=== PATIENT | female | born 1950 | race Caucasian/White ===

== ENCOUNTER 2021-03-17 02:13 | Emergency (ER) | payer MEDICARE, SELFPAY ==
[2021-03-17 02:18] VITALS: BP 105/62; PULSE 82; RESP 16; TEMP 36.4; O2SAT 98
[2021-03-17] MEDS: SILVER NITRATE (*SP) STICK 1 EACH TOPICAL (03:47)
[2021-03-17] MEDS: OXYMETAZOLINE HCL 0.05% NAS 15 ML BTL (*BKC) 1 SPRAY NASAL (03:47)
--- NOTE | 2021-03-17 04:21 | PC.NURSE ---
Pt has had no further bleeding. No new s/s.
[2021-03-17 04:27] VITALS: BP 111/64; PULSE 78; RESP 16; O2SAT 98
--- NOTE | 2021-03-17 04:27 | PC.NURSE ---
Pt has had no further bleeding since arriving to ED. Pt is electing to sign out and does not wish to wait for D/C by physician. Pt will return if needed. Pt did receive the Afrin nasal spray to Lt nare.
--- NOTE | 2021-03-17 09:05 | ED.EPISTAXIS ---
HPI - Epistaxis General Chief complaint: Epistaxis Stated complaint: nose bleed Time Seen by Provider: 03/17/21 03:17 Source: patient Mode of arrival: ambulatory Limitations: no limitations History of Present Illness HPI Narrative: This is a 70 year old female who presents for evaluation of epistaxis. She states tonight she was blowing her nose and she developed bleeding from her left nostril. She has been trying to stop the bleeding but pinching nose, apply ice and placing tissue in her nose. She states after 2 hours she was unable to get her nose to stop bleeding. She takes aspirin 81 mg and plavix for history of CVA. Her bleeding has stopped . She denies dizziness or lightheadedness. Related Data Home Medications Medication Instructions Recorded Confirmed acetaminophen 500 mg tablet 500 mg PO Q6H PRN 11/18/19 02/20/21 aspirin 81 mg tablet,delayed 81 mg PO DAILY 11/18/19 02/20/21 release cholecalciferol (vitamin D3) 50 50 mcg PO DAILY 02/20/21 02/20/21 mcg (2,000 unit) capsule magnesium 250 mg tablet 250 mg PO DAILY 02/20/21 02/20/21 Allergies Allergy/AdvReac Type Severity Reaction Status Date / Time codeine Allergy Severe nausea Verified 02/20/21 08:40 meperidine Allergy Severe Flushing Verified 02/20/21 08:40 Review of Systems Review of Systems: All systems reviewed & are unremarkable except as noted in HPI and below PMFSH Past Medical History Medical History (Updated 03/17/21 @ 09:12 by Celestina Ruffin MD) Accelerated hypertension Cerebrovascular accident (CVA) due to embolism of left middle cerebral artery Gastroesophageal reflux disease without esophagitis Mixed hyperlipidemia Surgical History Surgical History (Updated 03/17/21 @ 09:08 by Celestina Ruffin MD) History of appendectomy History of cholecystectomy Family History Family History Grandparent Family history of malignant neoplasm of breast Father Family history of coronary artery disease Mother Family history of malignant neoplasm of ovary Other Hypertension Social History Social History (Updated 02/20/21 @ 08:44 by Rach Lai MA) Smoking packs per day: 1 Smoking cigarettes per day: 20.0 Years smoked: 6 Smoking pack-years: 6.00 Smoking status: Former smoker Tobacco type: cigarettes Second hand tobacco smoke exposure: Yes Smoking end date: 10/07/77 Alcohol intake: current Exam Const: General: no acute distress and alert Orientation/consciousness: patient oriented x3 HENMT: Mouth: Yes lip normal Throat: uvula midline Other: right nostril normal, left nostril- no bleeding. There is small punctate area medial nostril may be source, Eyes: EOM: EOMs intact bilaterally Resp: Effort & Inspection: normal respiratory effort and no retractions Auscultation: clear to auscultation bilaterally Cardio: Rate: regular rate Rhythm: regular rhythm Heart sounds: no murmurs Skin: General skin exam: normal color Rashes: no rashes Neuro: General: patient oriented x3 and moves all extremities Psych: Mental Status: mental status grossly normal Course Reevaluation(s) Reevaluation #1: Nursing staff reports patient did not want to wait for reassessment or me to try to cauterize small area with silver nitrate. She stated her bleeding stopped. Date: 03/17/21 Time: 04:30 Vital Signs Vital signs: Vital Signs Temperature 97.6 F 03/17/21 02:18 Pulse Rate 82 03/17/21 02:18 Respiratory Rate 16 03/17/21 02:18 Blood Pressure 105/62 03/17/21 02:18 Pulse Oximetry 98 03/17/21 02:18 Temperature 97.6 F 03/17/21 02:18 Pulse Rate 78 03/17/21 04:27 Respiratory Rate 16 03/17/21 04:27 Blood Pressure 111/64 03/17/21 04:27 Pulse Oximetry 98 03/17/21 04:27 Discharge Plan Discharge Clinical Impression: Acute anterior epistaxis Patient Disposition: Elopement After Seen by Prov Condition: S
== END 2021-03-17 04:27 | disposition left against medical advice (07) ==
LOC: ANHED 03:47
PROVIDERS: Emergency Provider General Practice; PCP Internal Medicine
DX: R04.0 Epistaxis (principal); Z86.73 Personal history of transient ischemic attack (TIA), and cerebral infarction without residual deficits; Z79.02 Long term (current) use of antithrombotics/antiplatelets; Z79.82 Long term (current) use of aspirin; I10 Essential (primary) hypertension; K21.9 Gastro-esophageal reflux disease without esophagitis; E78.2 Mixed hyperlipidemia; Z87.891 Personal history of nicotine dependence
CPT/HCPCS: 99282; A9270

== ENCOUNTER → 2021-10-02 12:14 | Outpatient (CLI) | payer MEDICARE, SELFPAY ==
--- NOTE | ~2021-10-02 | DEXA_ITS ---
Bone Density Report Name: MARIA ISABEL CHANDLER Age: 71 Sex: Female Ethnicity: White Date of : 1950 Indication: postmenopausal; screening for osteoporosis; height loss; hysterectomy; Referring Provider: Daniel Lewis Study: Bone densitometry was performed. Exam Date: October 02, 2021 Accession number: [id number] Bone Density: Region BMD T-score Z-score Classification AP Spine (L1-L4) 1.043 0.0 2.1 Normal Femoral Neck (Left) 0.806 -0.4 1.4 Normal Total Hip (Left) 0.947 0.0 1.6 Normal Femoral Neck (Right) 0.847 0.0 1.8 Normal Total Hip (Right) 0.946 0.0 1.5 Normal Total Hip Mean 0.947 0.0 1.6 Normal World Health Organization criteria for BMD impression classify patients as: Normal (T-score at or above -1.0), Osteopenia (T-score between -1.0 and -2.5), or Osteoporosis (T-score at or below -2.5). 10-year Fracture Risk: FRAX not reported because: All T-scores for Spine Total, Hip Total, Femoral Neck at or above -1.0 Previous Exams: Region Exam Age BMD T-score BMD Change BMD Change Date g/cm2 vs Baseline vs Previous AP Spine(L1-L4) 10/02/2021 71 1.043 0.0 0.012 0.012 10/01/2019 69 1.030 -0.2 Total Hip(Left) 10/02/2021 71 0.947 0.0 -0.065* -0.065* 10/01/2019 69 1.013 0.6 Total Hip(Right) 10/02/2021 71 0.946 0.0 -0.045* -0.045* 10/01/2019 69 0.992 0.4 *Denotes significance at 95% confidence level, LSC for AP Spine = 0.022 g/cm2, LSC for Total Hip = 0.027 g/cm2 Clinical Information Provided by Patient: Has used the following medications: Vitamin D Has the following medical conditions: Hysterectomy Patient maximum height was 63.0 Menopause Age: 44 No regular weight bearing exercise Drinks caffeinated beverages Onset of menses at age 14 Number of children 0 Impression: The patient has normal bone mass. The BMD for the Total Hip(Left) decreased, changing by -0.065 since the last DXA exam. The BMD for the Total Hip(Right) decreased, changing by -0.045 since the last DXA exam. Discussion: BONE DENSITY IS ABOVE THE MINIMUM DESIRABLE LEVEL AT ALL SKELETAL SITES TESTED. This patient?s bone mineral density is above the minimum desirable level (T-score -1.0 or better) at all sites measured. The patient should follow a healthful lifestyle (good nutrition with adequate calcium and vitamin D, and appropriate weight-bearing exercise). Follow-Up: Consider repeating this study in
--- NOTE | ~2021-10-02 | MM_ITS ---
EXAMINATION: MM screening dafne BI w trell HISTORY: Screening TECHNIQUE: Craniocaudal and mediolateral oblique 3-D tomosynthesis images were obtained and synthetic 2-D images were generated. CAD analysis was submitted and interpreted. COMPARISON: Comparison to multiple prior studies sequentially, with oldest reviewed study dated 05/2013. BREAST PARENCHYMAL COMPOSITION: There are scattered areas of fibroglandular density. FINDINGS: There is a new mass in the lower outer quadrant of the left breast anteriorly. The right br east is stable without evidence for malignancy. IMPRESSION: 1. New right breast mass, lower outer quadrant anteriorly. 2. Additional mammographic views and possible breast ultrasound are recommended. BI-RADS Category 0: Incomplete: Needs additional imaging evaluation. Reviewed, dictated and finalized at location A. 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 New right breast mass, lower outer quadrant anteriorly. 2. Additional mammographic views and possible breast ultrasound are recommended . BI-RADS Category 0: Incomplete: Needs additional imaging evaluation.
== END ==
PROVIDERS: PCP Internal Medicine; Visit Provider Internal Medicine
DX: Z12.31 Encounter for screening mammogram for malignant neoplasm of breast (principal); Z78.0 Asymptomatic menopausal state; R92.8 Other abnormal and inconclusive findings on diagnostic imaging of breast
CPT/HCPCS: 77063; 77067; 77080

== ENCOUNTER 2021-11-01 13:38 | Outpatient (CLI) | payer MEDICARE, SELFPAY ==
--- NOTE | ~2021-11-01 | MM_ITS ---
EXAMINATION: MM diagnostic dafne LT w trell HISTORY: Possible left breast mass on screening mammogram TECHNIQUE: Additional 3-D tomosynthesis images of the left breast were performed and synthetic 2-D im ages were generated. CAD analysis was submitted and interpreted. COMPARISON: 10/02/2021,10/01/2019, 04/02/2018, 09/27/2016 BREAST PARENCHYMAL COMPOSITION: There are scattered areas of fibroglandular density. FINDINGS: Spot compression views demonstrate a 6 mm mass in the anterior third of the lower-outer shayna ast which has a stable appearance when compared to prior examinations. No suspicious mass, calcificat ion, or architectural distortion are identified. IMPRESSION: 1. No mammographic evidence of malignancy. 2. Recommend routine screening mammography in one year. BI-RADS Category 2: Benign finding(s). Reviewed, dictated and finalized at location A. 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
== END 2021-11-01 13:39 | disposition home or self-care (01) ==
LOC: ANHIMG 13:40
PROVIDERS: PCP Internal Medicine; Visit Provider Nurse Practitioner
DX: N63.23 Unspecified lump in the left breast, lower outer quadrant (principal)
CPT/HCPCS: 77061; 77065; G0279

== ENCOUNTER 2022-02-08 22:56 | Emergency (ER) | payer MEDICARE, SELFPAY ==
--- NOTE | ~2022-02-08 | CT_ITS ---
EXAMINATION: CT cervical spine wo con DATE: 02/09/2022 00:36 INDICATION: Head injury TECHNIQUE: Computed tomography (CT) of the cervical spine was performed without intravenous contrast. The dose-length product (DLP) was 487.95 mGy-cm. Automated exposure control and iterative reconstruc tion technique were employed. COMPARISON: None FINDINGS: There is no fracture. There are 2 mm of retrolisthesis of C4 on C5. The vertebral body heig hts are maintained. There is mild loss of intervertebral disc space height at C3-4 and C4-5. The odon toid is intact. The prevertebral soft tissues are normal. There is mild facet and uncovertebral joint osteoarthritis at C3-4 and C4-5. IMPRESSION: 1. Mild cervical spondylosis without acute findings. Reviewed, dictated and finalized at location A.
--- NOTE | ~2022-02-08 | CT_ITS ---
EXAMINATION: CT brain wo con INDICATION: Head injury COMPARISON: None TECHNIQUE: Standard unenhanced head CT. The dose-length product (DLP) was 681.00 mGy-cm. The mA was a djusted according to patient size. Iterative reconstruction technique was employed. FINDINGS: There is no acute intraparenchymal hemorrhage. A calcified extra-axial mass located superio rly adjacent to the right frontal lobe likely represents a meningioma. No evidence of acute infarctio n. There is mild periventricular and subcortical hypodensity probably related to small vessel ischemi c disease. There is mild prominence of the sulci and ventricles related to cerebral atrophy. Intracra nial calcified cerebral atherosclerosis is noted. There are no extra-axial collections. There is no m ass effect or midline shift. The orbits and soft tissues are unremarkable. There is mild mucosal thic kening of the paranasal sinuses. IMPRESSION: 1. No acute intracranial abnormality. 2. Age related findings. Reviewed, dictated and finalized at location A.
[2022-02-08 22:57] VITALS: BP 150/101; PULSE 88; RESP 18; TEMP 36.6; O2SAT 96
--- NOTE | 2022-02-09 00:15 | ED.FALL ---
HPI - Fall General Chief Complaint: Fall Stated Complaint: fell at home Time Seen by Provider: 02/08/22 23:53 Source: patient History of Present Illness HPI Narrative: Patient fell. She was sleeping woke up to use the restroom and tripped in the bathroom is unsure if she tripped on the tile or the rug. Reports she fell backwards into her tub grabbed a hand railing and then struck the left side of her head on the wall. She reports pain around her ear that is achy, constant, no radiation, worse with manipulating the ear. She denies any changes in vision or hearing denies any focal numbness or weakness. She denies any other focal areas of pain in her extremities or torso. She is concerned because she is on blood thinners and wanted to be evaluated for head injury. She any prodrome prior to the fall such as chest pain, shortness of breath, lightheadedness. Related Data Home Medications Medication Instructions Recorded Confirmed acetaminophen 500 mg tablet 500 mg PO Q6H PRN 11/18/19 08/17/21 aspirin 81 mg tablet,delayed 81 mg PO DAILY 11/18/19 08/17/21 release cholecalciferol (vitamin D3) 50 50 mcg PO DAILY 02/20/21 08/17/21 mcg (2,000 unit) capsule magnesium 250 mg tablet 250 mg PO DAILY 02/20/21 08/17/21 Allergies Allergy/AdvReac Type Severity Reaction Status Date / Time codeine Allergy Severe nausea Verified 02/08/22 23:02 meperidine Allergy Severe Flushing Verified 02/08/22 23:02 Review of Systems Review of Systems: CONSTITUTIONAL: Denies fever, chills, or sweats. EYES: Denies visual changes, redness, or discharge. ENT: Denies rhinorrhea, congestion, sore throat, or otalgia. CARDIOVASCULAR: Denies chest pain, palpitations, or edema. RESPIRATORY: Denies cough or dyspnea. GASTROINTESTINAL: Denies abdominal pain, nausea, vomiting, or diarrhea. GENITOURINARY: Denies dysuria or hematuria. SKIN: Denies rash or itching. MUSCULOSKELETAL: Denies back pain, joint pain, or myalgia. NEUROLOGIC: Denies numbness, dizziness, or weakness. PSYCHIATRIC: Denies anxiety or depression. All systems reviewed & are unremarkable except as noted in HPI and below PMFSH Past Medical History Medical History Accelerated hypertension Cerebrovascular accident (CVA) due to embolism of left middle cerebral artery Gastroesophageal reflux disease without esophagitis Mixed hyperlipidemia Surgical History Surgical History History of appendectomy History of cholecystectomy Family History Family History Grandparent Family history of malignant neoplasm of breast Father Family history of coronary artery disease Mother Family history of malignant neoplasm of ovary Other Hypertension Social History Social History Smoking packs per day: 1 Smoking cigarettes per day: 20.0 Years smoked: 6 Smoking pack-years: 6.00 Smoking status: Never smoker Tobacco type: cigarettes Second hand tobacco smoke exposure: Yes Smoking end date: 10/07/77 Alcohol intake: current Alcohol use details: rarely Substance use: never Substance use type: does not use Exam Narrative: GENERAL: Well-appearing, well-nourished, and in no acute distress. HEAD: Normocephalic, atraumatic. EYES: PERRLA and EOMI. ENT: Nares clear, no rhinorrhea or epistaxis. Mucous membranes moist. Edema and erythema noted to the left ear no open or draining wounds no hematoma EACs clear bilaterally TMs clear bilaterally NECK: Supple. No masses. No JVD CHEST: Clear to auscultation. No respiratory distress. No wheezes rales or rhonchi HEART: Regular rate and rhythm. No murmur heard. Normal peripheral pulses. ABDOMEN: Soft, nontender, nondistended, normal active bowel sounds. EXTREMITIES: Normal range of motion. No edema. SKIN: Warm, dry, no rash.
[2022-02-09 00:25] LABS: Basophils Absolute Auto 0.1 K/mm3 (0.0-0.1); Basophils Percent Auto 0.6 % (0.2-1.2); Eosinophils Absolute Auto 0.1 K/mm3 (0-0.3); Eosinophils Percent Auto 0.9 % (0-4.4); Hematocrit 45.1 % (37.0-47.0); Hemoglobin 14.4 g/dL (12.0-15.0); Immature Granulocyte Absolute 0.02 K/mm3 (0.00-0.031); Immature Granulocyte Percent A 0.2 % (0-0.5); Lymphocytes Absolute Auto 1.89 K/mm3 (0.9-3.2); Lymphocytes Percent Auto 19.5 % (18.3-44.2); Mean Corpuscular HGB Conc 31.9 g/dl (32-36); Mean Platelet Volume 8.8 fl (7.4-10.4); Neutrophils Absolute Auto 6.7 K/mm3 (1.3-6.7); Neutrophils Percent Auto 68.8 % (45.5-73.1); Platelet Count Result 345 k/mm3 (150-375); Red Cell Distribution Width 14.2 % (11.5-14.5); White Blood Count 9.7 K/mm3 (4.5-10.0)
[2022-02-09 00:34] LABS: Alanine Aminotransferase 14 U/L (4-35); Albumin Level 4.1 g/dL (3.5-5.1); Alkaline Phosphatase 86 U/L (38-126); Anion Gap 6 mmol/L (8-16); Aspartate Amino Transferase 30 U/L (14-36); Bilirubin,Total 0.5 mg/dL (0.2-1.3); Blood Urea Nitrogen 15 mg/dL (7-17); Carbon Dioxide 25 mmol/L (22-30); Chloride 102 mmol/L (98-107); Estimated CRCL calculation 54 ml/min; Estimated Glomerular Filt Rate > 60; Glucose 136 mg/dL (65-110); Sodium 133 mmol/L (137-145)
[2022-02-09 01:08] LABS: Appearance Urine Clear (Clear); Bacteria Urine Trace /hpf; Bilirubin Urine Negative (Negative); Color Urine Yellow (Yellow); Glucose Urine UA Negative (Negative); Ketones Urine Negative (Negative); Leukocyte Esterase Ur Negative LEU/UL (Negative); Mucus Urine Rare /lpf; Nitrate Urine Negative (Negative); Protein Urine Negative (Negative); RBC Urine 0-2 /hpf (0-2); Specific Grav Ur 1.015 (1.001-1.035); Squamous Epithelial Cell Urine Occasional /hpf (Few); Urobilinogen Urine 0.2 mg/dL (<2.0); WBC Urine 0-3 /hpf
[2022-02-09 01:10] LABS: Add Urine Microscopic? YES; Blood Urine Trace (Negative)
[2022-02-09 01:30] VITALS: BP 137/66; PULSE 70; RESP 16; O2SAT 96
== END 2022-02-09 01:30 | disposition home or self-care (01) ==
PROVIDERS: Emergency Provider Emergency Medicine; PCP Internal Medicine
DX: S00.03XA Contusion of scalp, initial encounter (principal); I10 Essential (primary) hypertension; E78.2 Mixed hyperlipidemia; K21.9 Gastro-esophageal reflux disease without esophagitis; Z86.73 Personal history of transient ischemic attack (TIA), and cerebral infarction without residual deficits; Z79.82 Long term (current) use of aspirin; Z87.891 Personal history of nicotine dependence; W01.198A Fall on same level from slipping, tripping and stumbling with subsequent striking against other object, initial encounter
CPT/HCPCS: 36415; 70450; 72125; 80053; 81001; 85025; 99284

== ENCOUNTER 2023-02-11 08:52 | Emergency (ER) | payer MEDICARE, SELFPAY ==
[2023-02-11] VITALS (9 sets, daily range): BP systolic 101–135; BP diastolic 70–89; PULSE 70–89; RESP 16–20; TEMP 36.8; O2SAT 96–100
--- NOTE | ~2023-02-11 | XR_ITS ---
EXAMINATION: XR pelvis 1-2V DATE: 02/11/2023 10:25 INDICATION: Right hip swelling. Fall. TECHNIQUE: An anteroposterior view of the pelvis was obtained. COMPARISON: None. FINDINGS: There is lumbar levoscoliosis and moderate to severe spondylosis. No fracture. There is mil d osteoarthritis of the hips. IMPRESSION: 1. Mild osteoarthritis of the hips. Reviewed, dictated and finalized at location A.
--- NOTE | ~2023-02-11 | XR_ITS ---
EXAMINATION: XR elbow RT min 3V DATE: 02/11/2023 10:25 INDICATION: Swelling, bruising and laceration posterior to the right elbow post fall TECHNIQUE: Anteroposterior, two oblique and lateral views of the right elbow were obtained. COMPARISON: None. FINDINGS: Alignment is normal. No fracture or joint effusion. Mild osteoarthritis at the right elbow with mild nonuniform joint space narrowing at the capitellar and proximal radioulnar articulations. Linear luce ncy involving the soft tissues posterior to the right elbow which likely represents the described lac eration. No radiopaque foreign bodies. IMPRESSION: 1. No acute osseous abnormality or radiopaque foreign body. Reviewed, dictated and finalized at location A.
--- NOTE | ~2023-02-11 | XR_ITS ---
EXAMINATION: XR femur RT min 2V DATE: 02/11/2023 10:25 INDICATION: Right hip swelling and bruising post fall TECHNIQUE: AP and lateral views of the right femur were obtained on overlapping proximal and distal i mages. COMPARISON: None. FINDINGS: Bone alignment is normal. No fracture. Polyarticular osteoarthritis, moderate at the right sacroiliac joint, mild at the right hip and mild to moderate severity with medial compartment predomi nance at the right knee. No right knee joint effusion. Soft tissue swelling with prominent reticulati ons to the subcutaneous fat overlying the right greater trochanter consistent with a likely posttraum atic contusion. IMPRESSION: 1. Soft tissue contusion overlying the right greater trochanter. No acute osseous abnormality. Reviewed, dictated and finalized at location A. IMPRESSION: 1. Soft tissue contusion overlying the right greater trochanter. No acute osseo us abnormality.
[2023-02-11 09:58] LABS: Basophils Percent Auto 0.2 % (0.2-1.2); Eosinophils Absolute Auto 0.1 K/mm3 (0-0.3); Hematocrit 43.6 % (37.0-47.0); Hemoglobin 14.1 g/dL (12.0-15.0); Immature Granulocyte Absolute 0.06 K/mm3 (0.00-0.031); Immature Granulocyte Percent A 0.5 % (0-0.5); Lymphocytes Absolute Auto 1.59 K/mm3 (0.9-3.2); Lymphocytes Percent Auto 12.8 % (18.3-44.2); Mean Corpuscular HGB Conc 32.3 g/dl (32-36); Mean Corpuscular Hemoglobin 30.2 pg (26-34); Mean Corpuscular Volume 93.4 fl (80-100); Mean Platelet Volume 8.9 fl (7.4-10.4); Monocytes Absolute Auto 0.7 K/mm3 (0.1-0.6); Monocytes Percent Auto 5.6 % (2.6-8.5); Neutrophils Absolute Auto 9.9 K/mm3 (1.3-6.7); Neutrophils Percent Auto 79.9 % (45.5-73.1); Platelet Count Result 389 k/mm3 (150-375); Red Blood Count 4.67 M/mm3 (4.2-5.4); Red Cell Distribution Width 14.2 % (11.5-14.5); White Blood Count 12.4 K/mm3 (4.5-10.0)
[2023-02-11 10:06] LABS: Alanine Aminotransferase 20 U/L (6-35); Albumin Level 4.4 g/dL (3.5-5.1); Alkaline Phosphatase 73 U/L (38-126); Anion Gap 6 mmol/L (8-16); Aspartate Amino Transferase 32 U/L (14-36); Bilirubin,Total 0.5 mg/dL (0.2-1.3); Blood Urea Nitrogen 20 mg/dL (7-17); Calcium 9.1 mg/dL (8.4-10.2); Carbon Dioxide 28 mmol/L (22-30); Chloride 104 mmol/L (98-107); Estimated CRCL calculation 61 ml/min; Estimated Glomerular Filt Rate > 60; Glucose 116 mg/dL (65-110); Potassium 4.3 mmol/L (3.4-5.0); Sodium 138 mmol/L (137-145)
[2023-02-11 10:10] LABS: Partial Thromboplastin Time 29.4 SECONDS (22.3-36.8); Prothrombin Time 13.8 Seconds (11.1-14.7)
--- NOTE | 2023-02-11 10:38 | ED.FALL ---
HPI - Fall General Chief Complaint: Fall Stated Complaint: Fall Time Seen by Provider: 02/11/23 09:03 History of Present Illness HPI Narrative: This is a 72-year-old female with past history of stroke on Plavix and aspirin, who presents emergency department complaining of right hip pain and swelling after a fall. The patient states she was walking to her car, when her right leg slipped on the ground. She fell striking her right hip and right elbow. She denies head injury or loss of consciousness. She states since the fall she has developed progressive swelling and pain of the right leg. It is rated 7/10 and does not radiate. She denies weakness or numbness of the leg Related Data Home Medications Medication Instructions Recorded Confirmed acetaminophen 500 mg tablet 500 mg PO Q6H PRN 11/18/19 08/17/22 (Tylenol Extra Strength) aspirin 81 mg tablet,delayed 81 mg PO DAILY 11/18/19 08/17/22 release (Aspir-) cholecalciferol (vitamin D3) 50 50 mcg PO DAILY 02/20/21 08/17/22 mcg (2,000 unit) capsule magnesium 250 mg tablet 250 mg PO DAILY 02/20/21 08/17/22 Allergies Allergy/AdvReac Type Severity Reaction Status Date / Time codeine Allergy Severe nausea Verified 02/11/23 09:02 meperidine Allergy Severe Flushing Verified 02/11/23 09:02 Review of Systems Review of Systems: CONSTITUTIONAL: Denies fever, chills, or sweats. CARDIOVASCULAR: Denies chest pain, palpitations, or edema. RESPIRATORY: Denies cough or dyspnea. GASTROINTESTINAL: Denies abdominal pain, nausea, vomiting, or diarrhea. GENITOURINARY: Denies dysuria or hematuria. SKIN: Denies rash or itching. MUSCULOSKELETAL: Right hip and elbow pain denies back pain, or myalgia. NEUROLOGIC: Denies headache, numbness, dizziness, or weakness. PSYCHIATRIC: Denies anxiety or depression. [facility] Past Medical History Medical History Accelerated hypertension Cerebrovascular accident (CVA) due to embolism of left middle cerebral artery COVID-19 Gastroesophageal reflux disease without esophagitis Mixed hyperlipidemia Surgical History Surgical History History of appendectomy History of cholecystectomy Family History Family History Grandparent Family history of malignant neoplasm of breast Father Family history of coronary artery disease Mother Family history of malignant neoplasm of ovary Other Hypertension Social History Social History Smoking packs per day: 1 Smoking cigarettes per day: 20.0 Years smoked: 6 Smoking pack-years: 6.00 Smoking status: Former smoker Tobacco type: cigarettes Second hand tobacco smoke exposure: Yes Smoking end date: 10/07/77 Alcohol intake: current Alcohol use details: wine rarely Substance use: never Substance use type: does not use Lack of Transportation: No Lack of Food: Never True Current Housing: I Have Housing Concerned About Future Housing: No Difficulty Paying Gas/Electric Bills: No Difficulty Paying for Meds: No Currently Unemployed: YES Education: Master's Degree or Higher Difficulty w/ Childcare or Family Care: No Exam Narrative: GENERAL: Well-developed, well-nourished, and in no acute distress. HEAD: Normocephalic, atraumatic. EYES: PERRLA and EOMI. NECK: Supple. No adenopathy or masses. No carotid bruits or JVD. No midline spine tenderness to palpation, no step-off or crepitus CHEST: Clear to auscultation. No respiratory distress. No wheezes rales or rhonchi HEART: Regular rate and rhythm. No murmur heard. Normal peripheral pulses. ABDOMEN: Soft, nontender, nondistended, normal active bowel sounds. EXTREMITIES: An approximate 8 x 5 cm hematoma is noted on the right thigh without bruit or thrill. Abrasion to the dorsal aspect of the r
[2023-02-11 11:40] LABS: Hemoglobin 13.6 g/dL (12.0-15.0)
== END 2023-02-11 13:29 | disposition home or self-care (01) ==
PROVIDERS: Emergency Provider Preventive Medicine Aerospace Medicine; PCP Family Medicine
DX: S70.01XA Contusion of right hip, initial encounter (principal); I10 Essential (primary) hypertension; K21.9 Gastro-esophageal reflux disease without esophagitis; E78.5 Hyperlipidemia, unspecified; Z86.16 Personal history of COVID-19; Z86.73 Personal history of transient ischemic attack (TIA), and cerebral infarction without residual deficits; W01.0XXA Fall on same level from slipping, tripping and stumbling without subsequent striking against object, initial encounter
CPT/HCPCS: 36415; 72170; 73080; 73552; 80053; 85014; 85018; 85025; 85610; 85730; 99284

== ENCOUNTER 2023-02-14 11:07 | Outpatient (CLI) | payer MEDICARE, SELFPAY ==
--- NOTE | ~2023-02-14 | CT_ITS ---
EXAMINATION: CT brain wo con DATE: 02/14/2023 11:46 INDICATION: Status post recent falls. Head injury. TECHNIQUE: Computed tomography (CT) of the head was performed without intravenous contrast. The dose- length product was 605.33 mGy-cm. Automated exposure control and iterative reconstruction technique w ere employed. COMPARISON: CT dated 02/09/2022 FINDINGS: There is a chronic left frontal lobe infarction. There are chronic left lacunar infarction of the lentiform nucleus. There is a chronic left parietal lobe infarction involving the centrum semi ovale. No ventriculomegaly or midline shift. No ventriculomegaly or midline shift. There is intracran ial atherosclerosis. Paranasal sinuses and mastoids are pneumatized. No depressed skull fractures. Ge neralized atrophy. There are scattered mild periventricular and subcortical white matter changes, mos t likely related to small vessel ischemic disease (microangiopathy). IMPRESSION: 1. No acute intracranial abnormality. 2: Multiple chronic left hemispheric infarctions. Reviewed, dictated and finalized at location L.
== END 2023-02-14 11:08 | disposition home or self-care (01) ==
PROVIDERS: PCP Family Medicine; Visit Provider Nurse Practitioner
DX: S06.9X1A Unspecified intracranial injury with loss of consciousness of 30 minutes or less, initial encounter (principal); W19.XXXA Unspecified fall, initial encounter
CPT/HCPCS: 70450

== ENCOUNTER 2023-04-25 09:09 | Outpatient (CLI) | payer MEDICARE, SELFPAY ==
--- NOTE | ~2023-04-25 | MM_ITS ---
EXAMINATION: MM screening dafne BI w trell HISTORY: Screening TECHNIQUE: Craniocaudal and mediolateral oblique 3-D tomosynthesis images were obtained and synthetic 2-D images were generated. CAD analysis was submitted and interpreted. COMPARISON: Comparison to multiple prior studies sequentially, with oldest reviewed study dated 04/18. BREAST PARENCHYMAL COMPOSITION: There are scattered areas of fibroglandular density. FINDINGS: Stable architectural distortion medial aspect of the left breast, consistent with previous benign biopsy. There is no evidence of suspicious mass, calcification, or architectural distortion to suggest malignancy in either breast. There has been no suspicious interval change. IMPRESSION: 1. No mammographic evidence of malignancy. 2. Recommend routine screening mammography in one year. BI-RADS Category 2: Benign finding(s). Reviewed, dictated and finalized at location A.
== END 2023-04-25 09:10 | disposition home or self-care (01) ==
PROVIDERS: PCP Family Medicine; Visit Provider Nurse Practitioner
DX: Z12.31 Encounter for screening mammogram for malignant neoplasm of breast (principal)
CPT/HCPCS: 77063; 77067

== ENCOUNTER 2023-08-28 03:26 | Day surgery (SDC) | payer MEDICARE, SELFPAY ==
[2023-08-22 14:33] VITALS: BMI 32.7
--- NOTE | 2023-08-26 08:48 | SUR.PREOP ---
Patient called regarding upcoming procedure. Message left on patient's voicemail regarding preop instructions, appointment times, and procedure prep.
--- NOTE | 2023-08-27 10:38 | PM.HPGS ---
History of Present Illness History of Present Illness Consent: Risks, benefits, and alternatives have been discussed and questions answered. Patient agrees to proceed with procedure. Chief complaint: family hx of colon ca Narrative: Fiona Keating is a 73 year old female referred for colon cancer screening. She has a family history of colon cancer. She had a colonoscopy about 8 years ago. Review of Systems Review of Systems: All systems reviewed & are unremarkable except as noted in HPI and below PMFSH Past Medical History Medical History Accelerated hypertension Cerebrovascular accident (CVA) due to embolism of left middle cerebral artery COVID-19 Gastroesophageal reflux disease without esophagitis Mixed hyperlipidemia Surgical History Surgical History History of appendectomy History of cholecystectomy Family History Family History Grandparent Family history of malignant neoplasm of breast Father Family history of coronary artery disease Mother Family history of malignant neoplasm of ovary Other Hypertension Social History Social History Smoking packs per day: 1 Smoking cigarettes per day: 20.0 Years smoked: 6 Smoking pack-years: 6.00 Smoking status: Former smoker Tobacco type: cigarettes Second hand tobacco smoke exposure: Yes Smoking end date: 10/07/77 Alcohol intake: current Alcohol use details: wine rarely Substance use: former Substance use type: does not use Lack of Transportation: No Lack of Food: Never True Current Housing: I Have Housing Concerned About Future Housing: No Difficulty Paying Gas/Electric Bills: No Difficulty Paying for Meds: No Currently Unemployed: No Education: Master's Degree or Higher Difficulty w/ Childcare or Family Care: No Living arrangements: with family Spiritual care concerns: No Meds Home Medications and Allergies Home Medications Medication Instructions Recorded Confirmed Type acetaminophen 500 mg tablet 500 mg PO Q6H PRN Pain 11/18/19 08/28/23 History (Tylenol Extra Strength) aspirin 81 mg tablet,delayed 81 mg PO DAILY 11/18/19 08/28/23 History release (Aspir-) cholecalciferol (vitamin D3) 50 50 mcg PO DAILY 02/20/21 08/28/23 History mcg (2,000 unit) capsule magnesium 250 mg tablet 250 mg PO DAILY 02/20/21 08/28/23 History clopidogrel 75 mg tablet 75 mg PO DAILY #90 tabs 07/04/23 08/28/23 Rx phenylephrine HCl 1 % nasal spray 1 spray intranasal Q6H PRN 08/22/23 08/28/23 History ([address]) Congestion tramadol 50 mg tablet 50 mg PO BID 08/22/23 08/28/23 History hydrochlorothiazide 12.5 mg tablet 12.5 mg PO DAILY 08/28/23 08/28/23 History lisinopril 10 mg tablet 10 mg PO DAILY 08/28/23 08/28/23 History Allergies Allergy/AdvReac Type Severity Reaction Status Date / Time meperidine Allergy Severe Flushing Verified 08/28/23 06:17 codeine AdvReac Severe nausea Verified 08/28/23 06:17 Exam Const: General: alert Orientation/consciousness: patient oriented x3 Resp: Auscultation: clear to auscultation bilaterally Cardio: Rhythm: regular rhythm GI: GI Palp: Yes Soft to palpation and No Tenderness to palpation present (GI) Neuro: General: patient oriented x3 Assessment and Plan Assessment and plan (1) Family history of colon cancer: Code(s): Z80.0 - Family history of malignant neoplasm of digestive organs Status: Acute Assessment and Plan: Colonoscopy with possible biopsy or polypectomy or cautery or injection of substances.
[2023-08-28 06:19] VITALS: BP 134/83; PULSE 95; RESP 16; TEMP 36.9; O2SAT 97
[2023-08-28] MEDS: LACTATED RINGERS 1,000 ML 150 ML IV CONT (06:23)
--- NOTE | 2023-08-28 06:31 | WPDANESEPPF ---
Anes - Initial Pre Proc Eval Procedure: Operation Date: 08/28/23 07:30 Proposed Procedures p Colonoscopy - Joseph Leiva MD Date/Time: 08/28/23 06:31 Surgeon: Joseph Leiva MD Pre Op Diagnosis: family hx of colon ca Patient Data Age: 73 Gender: F Height: 1.55 m Weight: 83.1 kg Last Vital Signs Temp 36.9 C 08/28/23 06:19 Pulse 95 08/28/23 06:19 Resp 16 08/28/23 06:19 BP 134/83 08/28/23 06:19 Pulse Ox 97 08/28/23 06:19 O2 Del Method Room Air 08/28/23 06:19 Allergies Allergy/AdvReac Type Severity Reaction Status Date / Time meperidine Allergy Severe Flushing Verified 08/28/23 06:17 codeine AdvReac Severe nausea Verified 08/28/23 06:17 Home Medications Medication Instructions Recorded Confirmed Type acetaminophen 500 mg tablet 500 mg PO Q6H PRN Pain 11/18/19 08/28/23 History (Tylenol Extra Strength) aspirin 81 mg tablet,delayed 81 mg PO DAILY 11/18/19 08/28/23 History release (Aspir-) cholecalciferol (vitamin D3) 50 50 mcg PO DAILY 02/20/21 08/28/23 History mcg (2,000 unit) capsule magnesium 250 mg tablet 250 mg PO DAILY 02/20/21 08/28/23 History clopidogrel 75 mg tablet 75 mg PO DAILY #90 tabs 07/04/23 08/28/23 Rx phenylephrine HCl 1 % nasal spray 1 spray intranasal Q6H PRN 08/22/23 08/28/23 History ([address]) Congestion tramadol 50 mg tablet 50 mg PO BID 08/22/23 08/28/23 History hydrochlorothiazide 12.5 mg tablet 12.5 mg PO DAILY 08/28/23 08/28/23 History lisinopril 10 mg tablet 10 mg PO DAILY 08/28/23 08/28/23 History Patient hx anesthesia problems: none Family hx anesthesia problems: none Results Review: All pre-operative results and documents have been reviewed as part of the pre-operative evaluation. [facility] Past Medical History Medical History Accelerated hypertension Cerebrovascular accident (CVA) due to embolism of left middle cerebral artery COVID-19 Gastroesophageal reflux disease without esophagitis Mixed hyperlipidemia Surgical History Surgical History History of appendectomy History of cholecystectomy Family History Family History Grandparent Family history of malignant neoplasm of breast Father Family history of coronary artery disease Mother Family history of malignant neoplasm of ovary Other Hypertension Social History Social History Smoking packs per day: 1 Smoking cigarettes per day: 20.0 Years smoked: 6 Smoking pack-years: 6.00 Smoking status: Former smoker Tobacco type: cigarettes Second hand tobacco smoke exposure: Yes Smoking end date: 10/07/77 Alcohol intake: current Alcohol use details: wine rarely Substance use: former Substance use type: does not use Lack of Transportation: No Lack of Food: Never True Current Housing: I Have Housing Concerned About Future Housing: No Difficulty Paying Gas/Electric Bills: No Difficulty Paying for Meds: No Currently Unemployed: No Education: Master's Degree or Higher Difficulty w/ Childcare or Family Care: No Living arrangements: with family Spiritual care concerns: No Anes - Eval Final PreProcedure Day of Procedure 08/28/23 06:31 Patient weight: obese Heart: regular rate and rhythm Lungs: clear to auscultation Airway: Mallampati scale class III and special considerations poor opening Neurological: alert and oriented Last oral intake: >/= 8 hours ASA classification: III Emergent: no Anesthetic plan: proceed Anesthesia type and monitoring: general GIVS and standard monitoring Results Review: All pre-operative results and documents have been reviewed as part of the pre-operative evaluation. Informed Consent: The patient's anesthetic plan and its attendant risks and benefits were discussed with the patient/fam
[2023-08-28 07:37] VITALS: BP 88/47; PULSE 63; RESP 23; O2SAT 97
[2023-08-28 07:47] VITALS: BP 87/60; PULSE 62; RESP 25; O2SAT 95
[2023-08-28 07:57] VITALS: BP 91/65; PULSE 63; RESP 24; O2SAT 98
== END 2023-08-28 08:08 | disposition home or self-care (01) ==
PROVIDERS: PCP Family Medicine; Visit Provider Internal Medicine Gastroenterology
PROC: 0DJD8ZZ Inspection of Lower Intestinal Tract, Via Natural or Artificial Opening Endoscopic (ICD-10-PCS; CPT 45378; principal; 2023-08-28 07:30)
DX: Z12.11 Encounter for screening for malignant neoplasm of colon (principal); K57.30 Diverticulosis of large intestine without perforation or abscess without bleeding; K64.8 Other hemorrhoids; Z80.0 Family history of malignant neoplasm of digestive organs; Z87.891 Personal history of nicotine dependence; E78.5 Hyperlipidemia, unspecified; Z86.73 Personal history of transient ischemic attack (TIA), and cerebral infarction without residual deficits; K21.9 Gastro-esophageal reflux disease without esophagitis
CPT/HCPCS: G0105; J2704; J7120

== ENCOUNTER 2024-02-24 12:18 | Outpatient (CLI) | payer MEDICARE, SELFPAY ==
--- NOTE | ~2024-02-24 | DEXA_ITS ---
Bone Density Report Name: MARIA ISABEL CHANDLER Age: 73 Sex: Female Ethnicity: White Date of : 1950 Indication: postmenopausal; screening for osteoporosis; height loss; hysterectomy; Referring Provider: JANN CARDOZA Study: Bone densitometry was performed. Exam Date: February 24, 2024 Accession number: [id number] Bone Density: Region BMD T-score Z-score Classification AP Spine (L1-L4) 0.991 -0.5 1.7 Normal Femoral Neck (Left) 0.736 -1.0 0.9 Normal Total Hip (Left) 0.924 -0.1 1.5 Normal Femoral Neck (Right) 0.742 -1.0 1.0 Normal Total Hip (Right) 0.855 -0.7 0.9 Normal Total Hip Mean 0.890 -0.4 1.2 Normal World Health Organization criteria for BMD impression classify patients as: Normal (T-score at or above -1.0), Osteopenia (T-score between -1.0 and -2.5), or Osteoporosis (T-score at or below -2.5). 10-year Fracture Risk: FRAX not reported because: All T-scores for Spine Total, Hip Total, Femoral Neck at or above -1.0 Previous Exams: Region Exam Age BMD T-score BMD Change BMD Change Date g/cm2 vs Baseline vs Previous AP Spine(L1-L4) 02/24/2024 73 0.991 -0.5 -0.039 -0.051 10/02/2021 71 1.043 0.0 0.012 0.012 10/01/2019 69 1.030 -0.2 Total Hip(Left) 02/24/2024 73 0.924 -0.1 -0.089 -0.024 10/02/2021 71 0.947 0.0 -0.065* -0.065* 10/01/2019 69 1.013 0.6 Total Hip(Right) 02/24/2024 73 0.855 -0.7 -0.136 -0.091 10/02/2021 71 0.946 0.0 -0.045* -0.045* 10/01/2019 69 0.992 0.4 *Denotes significance at 95% confidence level, LSC for AP Spine = 0.022 g/cm2, LSC for Total Hip = 0.027 g/cm2 Clinical Information Provided by Patient: Has used the following medications: Vitamin D Has the following medical conditions: Hysterectomy Patient maximum height was 63.75 Menopause Age: 44 No regular weight bearing exercise Drinks caffeinated beverages Onset of menses at age 14 Number of children 0 Impression: The patient has normal bone mass. No significant bone loss was observed. Discussion: BONE DENSITY IS ABOVE THE MINIMUM DESIRABLE LEVEL AT ALL SKELETAL SITES TESTED. This patient?s bone mineral density is above the minimum desirable level (T-score -1.0 or better) at all sites measured. The patient should follow a healthful lifestyle (good nutrition with adequate calcium and vitamin D, and appropriate weight-bearing exer
== END 2024-02-24 12:19 ==
LOC: MICIMG 12:22
PROVIDERS: PCP Family Medicine; Visit Provider Family Medicine
DX: Z13.820 Encounter for screening for osteoporosis (principal); R29.890 Loss of height; Z78.0 Asymptomatic menopausal state
CPT/HCPCS: 77080

== ENCOUNTER 2024-07-28 12:30 | Outpatient (CLI) | payer MEDICARE, SELFPAY ==
--- NOTE | ~2024-07-28 | MM_ITS ---
EXAMINATION: MM screening [facility] BI w trell HISTORY: Screening TECHNIQUE: Craniocaudal and mediolateral oblique 3-D tomosynthesis images were obtained and synthetic 2-D images were generated. CAD analysis was submitted and interpreted. COMPARISON: Comparison to multiple prior studies sequentially, with oldest reviewed study dated 09/07. BREAST PARENCHYMAL COMPOSITION: Not dense: There are scattered areas of fibroglandular density. FINDINGS: Stable architectural distortion in the upper inner quadrant of the left breast compared wit h prior studies, consistent with previous biopsy. There is no evidence of suspicious mass, calcificat ion, or architectural distortion to suggest malignancy in either breast. There has been no suspicious interval change. IMPRESSION: 1. No mammographic evidence of malignancy. 2. Recommend routine screening mammography in one year. BI-RADS Category 2: Benign finding(s). Reviewed, dictated and finalized at location B.
== END 2024-07-28 12:31 | disposition home or self-care (01) ==
LOC: MICIMG 12:31
PROVIDERS: PCP Family Medicine; Visit Provider Family Medicine
DX: Z12.31 Encounter for screening mammogram for malignant neoplasm of breast (principal)
CPT/HCPCS: 77063; 77067

== ENCOUNTER 2025-06-11 13:30 | Outpatient (RCR) | payer MEDICARE, SELFPAY ==
--- NOTE | 2025-03-22 13:34 | OPREHPOC ---
Outpatient Therapy Plan of Care This is a Multidisciplinary Plan of Care that may contain components documented by all disciplines (PT, OT, and ST.) PT Problem 1 PT Problem #1 Knowledge Deficit PT Goal 1 Goal / Goal Update Patient to demonstrate independence with HEP for improved self-reliance of symptom management. Target Visit 5 PT Problem 2 PT Problem #2 Impaired Endurance PT Goal 1 Goal / Goal Update Patient to improve distance ambulated during 2MWT from 290 feet to 350 feet to demonstrate an improvement in ADL endurance. Target Visit 10 PT Problem 3 PT Problem #3 Impaired Strength PT Goal 1 Goal / Goal Update 1. Patient to perform 5xSTS from 24 sec to 18 sec to demonstrate an increase in B LE functional strength. 2. Patient to demonstrate Remy hip strength >=4-/5 for improved functional stability required for ADLs. Target Visit 10 PT Problem 4 PT Problem #4 Impaired Functional Mobility PT Goal 1 Goal / Goal Update Patient to improve outcome measure score on the Tinetti from 12 to 19 points or greater to improve fall risk from high to moderate to increase safety with mobility. Target Visit 10
--- NOTE | 2025-03-22 13:34 | PTOPEVAL1 ---
Assessment and note entered by Cecilia Lyles, PT Evaluation Information Assessment Status Evaluation Diagnosis general weakness and deconditioning ICD-10 Condition Codes (PT) Abnormalities of gait and mobility R26.9,Weakness R53.1 Subjective Information Pt reports having arthritis in most of her body. She has h/o L knee replacement and needs her R one done as well. She also did therapy for a RTC and bicep tear in her R shoulder. She has been doing shots every 6 months for her shoulder. She says she is not wanting to get her R knee replaced because of her R shoulder. She reports sleeping at night is the worst, has nerve pain shooting from the inside of her R knee to her groin. She gets up every 2 hours because of the pain, she is a side sleeper so her hips ache constantly. She had a stroke in 2019 and reports increase weakness on her R side after that as well. She has difficulty with stairs, getting up from a chair, and needs a cane to steady herself when walking. She reports generalized weakness and deconditioning, thinks when her neuropathy is worse it affects her brain and balance. She has a dog and is fearful of falling in the yard. She fell in her yard about 2 years ago and had a giant bruise, thinks she may have torn a muscle because the pain has never gotten better. Reported Pain Level Pain Score Moderate Pain: Roman Cancino Assessment PT Clinical Summary Pt is a 74 year old who presents to physical therapy with a primary complaint of weakness. Pt demonstrates B LE weakness with increased deficits on the R compared to the L, pain in multiple joints, decreased mobility, gait deficit, and decreased endurance that limit their ability to perform ADLs. Pt is also at a high risk of falls based on her Tinetti score of 12/28. Pt will benefit from skilled physical therapy to address the above listed deficits and return to PLOF. HEP instructed and written handout provided, EX tolerated well with no adverse effects to note post-session. Pt was educated on importance of adherence to HEP. Pt was also educated on anatomy, prognosis, home modalities, home environment modifications, and PT POC. Plan of Care Interventions Aquatic Therapy,Electrical Stimulation,Gait Training,Hot Pack/Cold Pack,Manual Therapy,Neuro Re-education,Therapeutic Activities,Therapeutic Exercise PT Services Indicated Yes Treatment Frequency and 2x/wk for 10 sessions Duration These treatments will address the objective and functional deficits as defined above. The patient will be advanced safely and appropriately in order for the patient to progress towards his/her prior level of function. Additional exercises will be introduced and as well as a comprehensive home exercise program upon discharge, if needed, ?to ensure carryover of functional gains achieved in the clinic. This treatment plan has been reviewed and agreement upon by the patient.
--- NOTE | 2025-05-05 13:19 | OPREHPOC ---
Outpatient Therapy Plan of Care This is a Multidisciplinary Plan of Care that may contain components documented by all disciplines (PT, OT, and ST.) PT Problem 1 PT Problem #1 Knowledge Deficit PT Goal 1 Goal / Goal Update Patient to demonstrate independence with HEP for improved self-reliance of symptom management. Target Visit 5 Progress Met PT Problem 2 PT Problem #2 Impaired Endurance PT Goal 1 Goal / Goal Update Patient to improve distance ambulated during 2MWT from 290 feet to 350 feet to demonstrate an improvement in ADL endurance. Target Visit 10 Progress Met PT Problem 3 PT Problem #3 Impaired Strength PT Goal 1 Goal / Goal Update 1. Patient to perform 5xSTS from 24 sec to 18 sec to demonstrate an increase in B LE functional strength. (05/05/25 MET) 2. Patient to demonstrate Remy hip strength >=4-/5 for improved functional stability required for ADLs. (05/05/25 progressing Abd; R: 3+/5 L: 3+/5) Target Visit 10 Progress Partially Met PT Problem 4 PT Problem #4 Impaired Functional Mobility PT Goal 1 Goal / Goal Update Patient to improve outcome measure score on the Tinetti from 12 to 19 points or greater to improve fall risk from high to moderate to increase safety with mobility. (05/05/25 progressing ) Target Visit 10 Progress Partially Met
--- NOTE | 2025-05-05 13:19 | PTOPPROG ---
Assessment and note entered by Cecilia Lyles, PT Evaluation Information Assessment Status Evaluation Diagnosis general weakness and deconditioning ICD-10 Condition Codes (PT) Abnormalities of gait and mobility R26.9,Weakness R53.1 Subjective Information Pt denies falls since starting therapy. She continues to struggle with walking because of her ingrown toe nails. She uses the cane when she is in her backyard for balance due to the uneven surface. She is not hesitating as much when entering the back of her house with stairs. Overall the pt reports feeling 80% improvement since starting therapy. She struggles getting out of her deeper couch sometimes but not regular chairs. She used to have to pickup her R leg to help it into the car but she does not have to help it anymore. She is compliant with her HEP. Assessment PT Clinical Summary Patient's condition has improved overall as evidenced by advancements in symptoms, mobility, strength, confidence with balance and overall functional tolerance to ADLs. However, some limitations are still present. Patient would benefit from continued skilled PT services to address the above listed impairments and facilitate a return to their PLOF. Plan of Care Interventions Aquatic Therapy,Electrical Stimulation,Gait Training,Hot Pack/Cold Pack,Manual Therapy,Neuro Re-education,Therapeutic Activities,Therapeutic Exercise PT Services Indicated Yes Treatment Frequency and 1-2x/wk for 6 sessions Duration These treatments will address the objective and functional deficits as defined above. The patient will be advanced safely and appropriately in order for the patient to progress towards his/her prior level of function. Additional exercises will be introduced and as well as a comprehensive home exercise program upon discharge, if needed, ?to ensure carryover of functional gains achieved in the clinic. This treatment plan has been reviewed and agreement upon by the patient.
--- NOTE | 2025-06-11 14:12 | OPREHPOC ---
Outpatient Therapy Plan of Care This is a Multidisciplinary Plan of Care that may contain components documented by all disciplines (PT, OT, and ST.) PT Problem 1 PT Problem #1 Knowledge Deficit PT Goal 1 Goal / Goal Update Patient to demonstrate independence with HEP for improved self-reliance of symptom management. 06-11-25 d/c goal met Target Visit 15 Progress Met PT Problem 2 PT Problem #2 Impaired Endurance PT Goal 1 Goal / Goal Update Patient to improve distance ambulated during 2MWT from 290 feet to 350 feet to demonstrate an improvement in ADL endurance. Target Visit 10 Progress Met PT Goal 2 Goal / Goal Update 06-11-25 d/c goal met- 470 PT Problem 3 PT Problem #3 Impaired Strength PT Goal 1 Goal / Goal Update 1. Patient to perform 5xSTS from 24 sec to 18 sec to demonstrate an increase in B LE functional strength. (05/05/25 MET) 2. Patient to demonstrate Remy hip strength >=4-/5 for improved functional stability required for ADLs. (05/05/25 progressing Abd; R: 3+/5 L: 3+/5) 06-11-25 d/c goals met Target Visit 15 Progress Met PT Problem 4 PT Problem #4 Impaired Functional Mobility PT Goal 1 Goal / Goal Update Patient to improve outcome measure score on the Tinetti from 12 to 19 points or greater to improve fall risk from high to moderate to increase safety with mobility. (05/05/25 progressing ) 06-11-25 d/c goals met Target Visit 15 Progress Met
--- NOTE | 2025-06-11 14:12 | PTOPDC ---
Assessment and note entered by Angie Terrell, PT Assessment Status Discharge Diagnosis general weakness and deconditioning ICD-10 Condition Codes (PT) Abnormalities of gait and mobility R26.9,Weakness R53.1 Subjective Information want today to be her last day of therapy; going to start at fitness center with my sister, so I can get stronger; no longer using the cane; feel more stable and confident with walking; Reported Pain Level Pain Score 4: Self Report in feet Assessment PT Clinical Summary Fiona has received 15 PT sessions. With today's assessment: continues to have pain in her feet; self assessment with LE functional scale of 30% limitation in activity level; Tinetti balance/gait score of 22/28; increase LE strength; 5 reps sit/stand without use of UE x 16 seconds; 2 minute walking test distance of 470' without assistive device; up/down 4 steps with one hand railing and alternate step pattern; good gait pattern; education for HEP and safety with mobility. The goals were achieved. Discharge PT, she is to continue with her HEP and plans to start going to the fitness center with her sister to continue strengthening. Plan of Care PT Services Indicated No
== END 2025-06-11 16:06 | disposition home or self-care (01) ==
LOC: ANHPT 13:30
PROVIDERS: PCP Family Medicine; Visit Provider Family Medicine
DX: R29.898 Other symptoms and signs involving the musculoskeletal system (principal)
CPT/HCPCS: 97110; 97112; 97140; 97162; 97530

== ENCOUNTER 2025-07-30 12:19 | Outpatient (CLI) | payer MEDICARE, SELFPAY ==
--- NOTE | ~2025-07-30 | MM_ITS ---
EXAMINATION: MM screening [facility] BI w [facility] HISTORY: Screening TECHNIQUE: Craniocaudal and mediolateral oblique 3-D tomosynthesis images were obtained and synthetic 2-D images were generated. CAD analysis was submitted and interpreted. COMPARISON: Comparison to multiple prior studies sequentially, with oldest reviewed study dated 04/02/2018. BREAST PARENCHYMAL COMPOSITION: Not dense: There are scattered areas of fibroglandular density. FINDINGS: There is no evidence of suspicious mass, calcification, or architectural distortion to suggest malignancy in either breast. There has been no suspicious interval change. IMPRESSION: 1. No mammographic evidence of malignancy. 2. Recommend routine screening mammography in one year. BI-RADS Category 1: Negative Reviewed, dictated and finalized at location O.
== END 2025-07-30 12:20 | disposition home or self-care (01) ==
LOC: MICIMG 12:20
PROVIDERS: PCP Family Medicine; Visit Provider Family Medicine
DX: Z12.31 Encounter for screening mammogram for malignant neoplasm of breast (principal)
CPT/HCPCS: 77063; 77067